=== PATIENT | male | born 1960 | race Caucasian/White ===

== ENCOUNTER 2017-11-15 17:49 | Inpatient (IN) | payer OTHER ==
[~2017-11-15] VITALS: Ht 167.6 cm; Wt 69.7 kg
[2017-11-15 18:18] VITALS: Ht 167.6 cm; Wt 69.7 kg
[2017-11-15 19:49] LABS: BASOPHIL % 0.8 % (0-2); PLATELET COUNT 397 x10^3mcL (130-400)
[2017-11-15 19:51] LABS: RED CELL DISTRIBUTION WIDTH 15.4 % (11.5-14.5)
[2017-11-15] MEDS ORDERED: FLA500 PO (20:10)
[2017-11-15] MEDS ORDERED: SIMVASTATIN40 M1 PO (20:11)
[2017-11-15] MEDS ORDERED: HUMI (20:11)
[2017-11-15] MEDS ORDERED: LANTUS SOLOS100 U/M1 (20:11)
[2017-11-15 20:12] LABS: CALCIUM 9.2 mg/dL (8.5-10.1); CARBON DIOXIDE 23.7 mmol/L (21-32)
[2017-11-15] MEDS ORDERED: PRO30 PO (20:16)
[2017-11-15] MEDS ORDERED: ATORVASTATIN CA40 M1 PO (20:17)
[2017-11-15] MEDS ORDERED: ASPIR 8181 MG (20:17)
[2017-11-15 20:22] LABS: T3 TOTAL 1.25 ng/mL
[2017-11-15 20:23] LABS: BILIRUBIN TOTAL 0.4 mg/dL (0.20-1.00); C REACTIVE PROTEIN 0.2 mg/dL (<=0.9); TOTAL PROTEIN, SERUM 7.3 g/dL (6.4-8.2)
[2017-11-15 20:24] LABS: ALBUMIN 3.3 g/dL (3.4-5.0)
[2017-11-15 20:35] LABS: ERYTHROCYTE SED RATE 60 mm/hr (0-20); FREE T4 1.82 ng/dL (0.76-1.46)
[2017-11-15 20:36] LABS: FREE THYROXINE INDEX 4.9 ug/dL (1.4-4.5); T4(THYROXINE) 14.3 ug/dL (4.7-13.3)
[2017-11-15 21:02] LABS: CK-MB 1.4 ng/mL (0-3.6)
[2017-11-15 22:09] VITALS: BP 162/77
[2017-11-15] MEDS ORDERED: GEMFIBROZIL600 MG PO (23:26)
[2017-11-15] MEDS ORDERED: PRAVASTATIN SOD40 M1 PO (23:27)
[2017-11-15] MEDS ORDERED: BENAZEPRIL HYDRO5 M1 PO (23:28)
[2017-11-15] MEDS ORDERED: KEN025C TOP (23:29)
[2017-11-16 00:05] LABS: MAGNESIUM 1.5 mg/dL (1.8-2.4)
[2017-11-16 00:06] LABS: CHOLESTEROL/HDL RATIO 2.8
[2017-11-16 04:49] LABS: microscopic required? YES; urine erythrocyte TRACE (NEGATIVE)
[2017-11-16 05:58] VITALS: BP 110/65
[2017-11-16 07:25] LABS: CALCIUM 8.5 mg/dL (8.5-10.1); CARBON DIOXIDE 27.4 mmol/L (21-32); CREATININE SERUM 1.7 mg/dL (0.7-1.3); MAGNESIUM 1.6 mg/dL (1.8-2.4); POTASSIUM SERUM 3.7 mmol/L (3.5-5.1)
[2017-11-16 07:49] LABS: IRON 46 ug/dL (65-170); TOTAL IRON BINDING CAPACITY 170 ug/dL (250-450)
[2017-11-16 08:24] LABS: PLATELET COUNT 338 x10^3mcL (130-400); RED BLOOD CELLS 3.53 M/mm3 (4.52-5.90); RED CELL DISTRIBUTION WIDTH 15.5 % (11.5-14.5)
[2017-11-16 09:38] VITALS: BP 138/55
[2017-11-16 13:53] VITALS: BP 162/82
[2017-11-16 16:55] VITALS: BP 129/44
[2017-11-16 20:49] VITALS: BP 148/57
[2017-11-17 05:20] VITALS: BP 101/69
[2017-11-17 09:14] LABS: BASOPHIL % 0.7 % (0-2); PLATELET COUNT 298 x10^3mcL (130-400)
[2017-11-17 09:22] VITALS: BP 115/45
[2017-11-17 09:33] LABS: RED CELL DISTRIBUTION WIDTH 15.2 % (11.5-14.5)
[2017-11-17 10:08] LABS: CALCIUM 8.1 mg/dL (8.5-10.1); CARBON DIOXIDE 25.8 mmol/L (21-32); CREATININE SERUM 1.8 mg/dL (0.7-1.3); MAGNESIUM 1.5 mg/dL (1.8-2.4); PHOSPHOROUS 3.2 mg/dL (2.5-4.9); POTASSIUM SERUM 3.8 mmol/L (3.5-5.1)
[2017-11-17 17:41] VITALS: BP 118/53
[2017-11-17 20:30] VITALS: BP 140/60
[2017-11-18 04:40] VITALS: BP 143/66
[2017-11-18 05:42] LABS: BASOPHIL % 0.8 % (0-2); PLATELET COUNT 297 x10^3mcL (130-400)
[2017-11-18 05:48] LABS: CALCIUM 8.5 mg/dL (8.5-10.1); CARBON DIOXIDE 26.4 mmol/L (21-32); PHOSPHOROUS 3.5 mg/dL (2.5-4.9); POTASSIUM SERUM 3.9 mmol/L (3.5-5.1)
[2017-11-18 06:29] LABS: RED CELL DISTRIBUTION WIDTH 15.9 % (11.5-14.5)
[2017-11-18 09:16] VITALS: BP 101/55
[2017-11-18] MEDS ORDERED: BACTRIM DS1 TAB PO (11:12)
[2017-11-18] MEDS ORDERED: METOPROLOL SUCC25 M2 PO (11:15)
[2017-11-18 12:03] VITALS: BP 150/68
[2017-11-18 13:13] VITALS: BP 150/68
[2017-11-18 13:59] VITALS: BP 134/48
== END 2017-11-18 15:41 | disposition home or self-care (01) | DRG 305 ==
LOC: ED 17:49 → MU 20:57 → DU 20:57 → MU 21:43 → DU 22:27 → MU 11-16 16:58
PROVIDERS: Family Medicine; Podiatrist Foot & Ankle Surgery; Specialist
PROC: 0Y6M0Z9 Detachment at Right Foot, Partial 1st Ray, Open Approach (ICD-10-PCS; principal; 2017-11-16 11:00)
DX: E11.52 Type 2 diabetes mellitus with diabetic peripheral angiopathy with gangrene (principal); N17.0 Acute kidney failure with tubular necrosis; E44.0 Moderate protein-calorie malnutrition; E11.621 Type 2 diabetes mellitus with foot ulcer; E87.2 Acidosis; E87.4 Mixed disorder of acid-base balance; I96 Gangrene, not elsewhere classified; E11.65 Type 2 diabetes mellitus with hyperglycemia; M86.8X7 Other osteomyelitis, ankle and foot; E02 Subclinical iodine-deficiency hypothyroidism; J45.909 Unspecified asthma, uncomplicated; I10 Essential (primary) hypertension; E78.00 Pure hypercholesterolemia, unspecified; E78.5 Hyperlipidemia, unspecified; E11.69 Type 2 diabetes mellitus with other specified complication; G72.9 Myopathy, unspecified; L97.529 Non-pressure chronic ulcer of other part of left foot with unspecified severity; D50.8 Other iron deficiency anemias; Z79.82 Long term (current) use of aspirin; Z79.4 Long term (current) use of insulin; Z68.25 Body mass index [BMI] 25.0-25.9, adult; Z89.422 Acquired absence of other left toe(s); Z79.899 Other long term (current) drug therapy
CPT/HCPCS: 36600; 82962; 83880; 84439; 97110-GP; 97116-GP; 97530-GP; 97535-GP; J1815; J2543; J2704; J3010; J3370; J3475; J3490; J7030; J7042; Q0092